=== PATIENT | female | born 1940 | race Caucasian/White ===

== ENCOUNTER 2016-07-03 04:14 | Emergency (ER) | payer MEDICARE ==
[2016-07-03] MEDS ORDERED: Ondansetron TAB* 4 MG PO ONE (04:31)
[2016-07-03] MEDS ORDERED: NS 0.9% 1000 ML* 1,000 ML IV ONE (04:31)
[2016-07-03] MEDS ORDERED: Ondansetron INJ* 2 MG/ML VIAL IV ONE ×2 (04:43→05:26)
[2016-07-03] MEDS ORDERED: Ondansetron INJ* 2 MG/ML VIAL ONE (04:44)
[2016-07-03 04:56] LABS: Hematocrit 41 % (35-47); Hemoglobin 13.6 g/dl (12.0-16.0); Mean Corpuscular HGB Conc 34 g/dl (31-36); Mean Corpuscular Hemoglobin 31 pg (27-31); Mean Corpuscular Volume 93 fL (80-97); Mean Platelet Volume 9 um3 (7.4-10.4); Red Blood Count 4.37 10^6/ul (4.0-5.4); Red Cell Distribution Width 13 % (10.5-15)
[2016-07-03 05:08] LABS: ALT 8 U/L (7-52); AST 18 U/L (13-39); Albumin 4.5 g/dL (3.2-5.2); Alkaline Phosphatase 50 U/L (34-104); Anion Gap 14 mmol/L (2-11); BUN/Creatinine Ratio 18.8 (8-20); Blood Urea Nitrogen 27 mg/dL (6-24); CO2 Carbon Dioxide 24 mmol/L (22-32); Calcium 9.7 mg/dL (8.6-10.3); Chloride 96 mmol/L (101-111); EGFR African American 46.7 (>60); EGFR Non-African American 36.3 (>60); Glucose 115 mg/dL (70-100); Lipase < 10 U/L (11.0-82.0); Magnesium 1.8 mg/dL (1.9-2.7); Sodium 134 mmol/L (133-145); Total Protein 7.5 g/dL (6.4-8.9)
--- NOTE | 2016-07-03 05:18 | ED ---
Itzel Amor Janilya, scribed for Swapnil Doyle MD on 07/03/16 at 0436 . GI/ HPI - HPI Summary HPI Summary: A 68 y/o female came in to [facility] [place] presenting w/ a gradual onset of constant nausea, vomiting, and diarrhea starting approximately 0400 on Sunday morning, July 01, 2016. Sometimes pt gets dry heaves. Pt reports discomfort and states that nothing makes her Sx better or worse. She says that she cannot keep anything down, hence her visit to the ED today. - History of Current Complaint Chief Complaint: EDNauseaVomitDiarrh Time Seen by Provider: 07/03/16 04:29 Stated Complaint: NAUSEA/VOMITING/DIARRHEA Hx Obtained From: Patient Onset/Duration: Started Days Ago, Atraumatic, Still Present Timing: Constant, Lasting Days Severity: Moderate Current Severity: Moderate Pain Intensity: 5 Associated Signs and Symptoms: Positive: Nausea, Vomiting, Diarrhea Aggravating Factor(s): Nothing Alleviating Factor(s): Nothing - Allergy/Home Medications Allergies/Adverse Reactions: Allergies Allergy/AdvReac Type Severity Reaction Status Date / Time Niacin [From [facility]] Allergy Hives/Diff. Verified 07/03/16 04:21 Breathing/I tching Home Medications: Home Medications Atenolol [Tenormin 25 MG] 12.5 mg PO DAILY 07/03/16 [History Confirmed 07/03/16] Calcium Carbonate-Cholecalcife [Calcium 1000 + D 1000-800 mg-Unit] 1 tab PO DAILY 07/03/16 [History Confirmed 07/03/16] Doxazosin Mesylate 1 tab PO DAILY 07/03/16 [History Confirmed 07/03/16] Ferrous Sulfate [Fe Tabs] 325 mg PO DAILY 07/03/16 [History Confirmed 07/03/16] Gabapentin CAP(*) [Neurontin 300 CAP(*)] 300 mg PO TID 07/03/16 [History Confirmed 07/03/16] Ibuprofen TAB* [Motrin TAB* 800 MG] 800 mg PO Q6H PRN 07/03/16 [History Confirmed 07/03/16] Lactobacillus [Probiotic] 1 cap PO DAILY 07/03/16 [History Confirmed 07/03/16] Magnesium Oxide 400 mg PO DAILY 07/03/16 [History Confirmed 07/03/16] Methadone TAB* [Dolophine TAB*] 20 mg PO BID 07/03/16 [History Confirmed ] Sheyenne-3 Fatty Acids [Sheyenne 3] 1 cap PO BID 07/03/16 [History Confirmed 07/03/16] Pantoprazole TAB (NF) [Protonix TAB (NF)] 20 mg PO BID 07/03/16 [History Confirmed 07/03/16] Potassium Chloride [K-Tab] 20 meq PO DAILY 07/03/16 [History Confirmed 07/03/16] PMH/Surg Hx/FS Hx/Imm Hx Previously Healthy: Yes Infectious Disease History: No Infectious Disease History: Denies: Traveled Outside the [place] in Last 30 Days - Family History Known Family History: Positive: Cardiac Disease - [place] - father, Diabetes Negative: Hypertension - Social History Occupation: Retired Alcohol Use: None Substance Use Type: Reports: None Smoking Status (MU): Never Smoked Tobacco Review of Systems Constitutional: Other - discomfort Gastrointestinal: Other - dry heaves Positive: Vomiting, Diarrhea, Nausea All Other Systems Reviewed And Are Negative: Yes Physical Exam Triage Information Reviewed: Yes Vital Signs On Initial Exam: Initial Vitals Temp Pulse Resp BP Pulse Ox 98.7 F 83 18 152/78 96 07/03/16 04:16 07/03/16 04:16 07/03/16 04:16 07/03/16 04:16 07/03/16 04:16 Vital Signs Reviewed: Yes Appearance: Positive: No Pain Distress, Thin Skin: Positive: Warm Eyes: Positive: [place] ENT: Positive: Hearing grossly normal Neck: Positive: Supple Cardiovascular: Positive: RRR Abdomen Description: Positive: Nontender, No Organomegaly, Soft Bowel Sounds: Positive: Present Musculoskeletal: Positive: Strength/ROM Intact Neurological: Positive: Sensory/Motor Intact Psychiatric: Positive: Normal Diagnostics - Vital Signs Vital Signs Temp Pulse Resp BP Pulse Ox 07/03/16 04:16 98.7 F 83 18 152/78 96 - Laboratory Lab Results: Lab Results 07/03/16 07/03/16 07/03/16 Range/Units 04:15 04:15 04:15 WBC 6.0 (3.5-10.8) 10^3/ul RBC 4.37 (4.0-5.4) 10^6/ul Hgb 13.6 (12.0-16.0) g/dl Hct 41 (35-47) % MCV 93 (80-97) fL MCH 31 (27-31) pg MCHC 34 (31-36) g/dl RDW 13 (10.5-15) % Plt Count 130 L (150-450) 10^3/ul MPV 9 (7.4-10.4) um3 Neut % (Auto) 73.9 (38-83) % Lymph % (Auto) 18.4 L (25-47) % [place] % (Auto) 7.2 (1-9) % Eos % (Auto) 0.1 (0-6) % Baso % (Auto) 0.4 (0-2) % Absolute Neuts (auto) 4.5 (1.5-7.7) 10^3/ul Absolute Lymphs (auto) 1.1 (1.0-4.8) 10^3/ul Absolute Monos (auto) 0.4 (0-0.8) 10^3/ul Absolute Eos (auto) 0 (0-0.6) 10^3/ul Absolute Basos (auto) 0 (0-0.2) 10^3/ul Absolute Nucleated RBC 0 10^3/ul Nucleated RBC % 0 Sodium 134 (133-145) mmol/L Potassium 3.0 L (3.5-5.0) mmol/L Chloride 96 L (101-111) mmol/L Carbon Dioxide 24 (22-32) mmol/L Anion Gap 14 H (2-11) mmol/L BUN 27 H (6-24) mg/dL Creatinine 1.44 H (0.51-0.95) mg/dL Est GFR ( Amer) 46.7 (>60) Est GFR (Non-Af Amer) 36.3 (>60) BUN/Creatinine Ratio 18.8 (8-20) Glucose 115 H (70-100) mg/dL Lactic Acid 3.4 H* (0.5-2.0) mmol/L Calcium 9.7 (8.6-10.3) mg/dL Magnesium 1.8 L (1.9-2.7) mg/dL Total Bilirubin 0.70 (0.2-1.0) mg/dL AST 18 (13-39) U/L ALT 8 (7-52) U/L Alkaline Phosphatase 50 (34-104) U/L Total Protein 7.5 (6.4-8.9) g/dL Albumin 4.5 (3.2-5.2) g/dL Globulin 3.0 (2-4) g/dL Albumin/Globulin Ratio 1.5 (1-3) Lipase < 10 L (11.0-82.0) U/L Result Diagrams: 07/03/16 04:15 07/03/16 04:15 Lab Statement: Any lab studies that have been ordered have been reviewed, and results considered in the medical decision making process. Re-Evaluation - Re-Evaluation First Eval Re-Evaluation Time: 06:32 - tolerating po Change: Improved GIGU Course/Dx - Diagnoses Provider Diagnoses: Vomiting Discharge - Discharge Plan Condition: Improved Disposition: HOME Patient Education Materials: Acute Nausea and Vomiting (DC) The documentation as recorded by the Itzel barbosa Janilya accurately reflects the service I personally performed and the decisions made by , Swapnil Doyle MD.
[2016-07-03] MEDS ORDERED: Potassium Chloride LIQUID* 20 MEQ PACKET PO ONE (05:44)
[2016-07-03] MEDS ORDERED: Ondansetron ODT TAB* 4 MG PO ONE (06:34)
[2016-07-03 07:27] VITALS: BP 139/62
== END 2016-07-03 07:26 | disposition home or self-care (01) ==
LOC: MERGE 04:14 → ED 04:14
DX: R11.10 Vomiting, unspecified (principal); Z88.5 Allergy status to narcotic agent
CPT/HCPCS: 36415; 80053; 83605; 83690; 83735; 85025; 96360; 96374; 96376; 99282; A9270-GY; J2405